=== PATIENT | female | born 1970 | race Caucasian/White ===

== ENCOUNTER 2023-09-30 19:18 | Emergency (ER) | payer BC, SELFPAY ==
--- NOTE | ~2023-09-30 | XR_ITS ---
EXAM: XR knee RT min 4V DATE: 09/30/2023 19:36 HISTORY: TWISTING INJURY,PAIN THROUGH ENTIRE KNEE . COMPARISON: None available. FINDINGS: Decreased mineralization. No fracture or dislocation. No lytic or blastic lesion. Mild tri compartmental knee osteoarthritis. Quadriceps enthesopathy. No erosion or periosteal change. Soft tis sues within normal limits. IMPRESSION: No acute osseous finding in the right knee. Reviewed, dictated and finalized at location K.
[2023-09-30 19:26] VITALS: BP 158/80; PULSE 96; RESP 20; TEMP 36.9; O2SAT 99
--- NOTE | 2023-09-30 19:41 | ED.LOWEXIN ---
HPI - Extremity Injury (Lower) General Chief Complaint: Extremity Injury, Lower Stated Complaint: Right Knee Injury History of Present Illness HPI Narrative: Patient presents with right knee pain. Patient injured the knee 2 weeks ago while on the treadmill. Patient continues to have pain with ambulation no deformity noted no swelling no bruising noted. Related Data Home Medications Medication Instructions Recorded Confirmed lisinopril 20 mg tablet mg 09/30/23 meloxicam 15 mg tablet mg 09/30/23 omeprazole 20 mg capsule,delayed mg 09/30/23 release Allergies Allergy/AdvReac Type Severity Reaction Status Date / Time haloperidol [From Haldol] Allergy Blister Verified 09/30/23 19:48 morphine Allergy Anaphylaxis Verified 09/30/23 19:49 Review of Systems Review of Systems: CONSTITUTIONAL: Denies fever, chills, or sweats. EYES: Denies visual changes, redness, or discharge. ENT: Denies rhinorrhea, congestion, sore throat, or otalgia. CARDIOVASCULAR: Denies chest pain, palpitations, or edema. RESPIRATORY: Denies cough or dyspnea. GASTROINTESTINAL: Denies abdominal pain, nausea, vomiting, or diarrhea. GENITOURINARY: Denies dysuria or hematuria. SKIN: Denies rash or itching. MUSCULOSKELETAL: Denies back pain, joint pain, or myalgia. NEUROLOGIC: Denies headache, numbness, or weakness. PSYCHIATRIC: Denies anxiety or depression. PMFSH Comments At time of signature, agree with nursing past medical, surgical, social and family history. There is no relevant family history pertinent to the presenting complaint Exam Narrative: GENERAL: Well-appearing, well-nourished, and in no acute distress. HEAD: Normocephalic, atraumatic. EYES: PERRLA and EOMI. ENT: Nares clear, no rhinorrhea or epistaxis. Mucous membranes moist. NECK: Supple. CHEST: Clear to auscultation. No respiratory distress. HEART: Regular rate and rhythm. No murmur heard. Normal peripheral pulses. ABDOMEN: Soft, nontender, nondistended, normal active bowel sounds. EXTREMITIES: Normal range of motion. No edema. SKIN INTACT. NO DEFORMITY. NORMAL ROM, HAS FULL EXTENSION AND FLEXION. COMPARTMENTS SOFT. NEGATIVE ANTERIOR, POSTERIOR DRAWER SIGNS ON TEST. NO CREPITUS. DP PULSE, NORMAL CAPILLARY REFILL MCMURRAYS, PAIN TO RIGHT MEDIAL AND DISTAL KNEE WITH KNEE FLEXION, INTERNAL AND EXTERNAL FOOT ROTATION.NO ERYTHEMA OR INCREASED WARMTH TO CALF. . SKIN: Warm, dry, no rash. NEURO: No focal deficits. Alert and oriented x3. Chandni Coma Scale Eye Opening: Spontaneous 4 [place] Coma Scale Motor: Obeys Commands 6 Chandni Coma Scale Verbal: Oriented 5 [place] Coma Scale Total 15 Course Course Level of Care: Express Care Visit Vital Signs Vital signs: Vital Signs Temperature 36.9 C 09/30/23 19:26 Pulse Rate 96 09/30/23 19:26 Respiratory Rate 20 09/30/23 19:26 Blood Pressure 158/80 H 09/30/23 19:26 Pulse Oximetry 99 09/30/23 19:26 Oxygen Delivery Room Air 09/30/23 19:26 Temperature 36.9 C 09/30/23 19:26 Pulse Rate 96 09/30/23 19:26 Respiratory Rate 20 09/30/23 19:26 Blood Pressure 158/80 H 09/30/23 19:26 Pulse Oximetry 99 09/30/23 19:26 Oxygen Delivery Room Air 09/30/23 19:26 Please [place] schedule a followup visit with your personal physician for further evaluation and treatment. Including recheck and discussion of your blood pressure. If your symptoms persist, change or worsen significantly before you can contact your personal physician then please, without delay, go to the emergency department for further evaluation MDM - Extremity Injury (Lower) Imaging Data Radiologist's impression: No acute osseous finding in the right knee. Discharge Plan Discharge Clinical Impression: Normal knee exam Patient Disposition: Home, Self-Care Condition: Stable Additional Instructions: Ice to the area 20-30 minutes 4-6 times a day Elevate above heart Tylenol for lesser pain Ibuprofen regularly for the next 2-3
[2023-09-30 19:49] VITALS: BP 158/80; PULSE 96; RESP 20; TEMP 36.9; O2SAT 99
== END 2023-09-30 20:02 | disposition home or self-care (01) ==
PROVIDERS: Emergency Provider Nurse Practitioner Family; PCP Internal Medicine
DX: M25.561 Pain in right knee (principal); K21.9 Gastro-esophageal reflux disease without esophagitis; Z85.828 Personal history of other malignant neoplasm of skin
CPT/HCPCS: 73564; 99213; G0463